=== PATIENT | female | born 1985 | race American Indian/Alaskan Native ===

== ENCOUNTER 2021-02-14 22:26 | Emergency (ER) | payer BC ==
[2021-02-14] MEDS ORDERED: SODIUM CHLORIDE 0.9% 1000 ML 1,000 ML IV ONE (23:37)
[2021-02-14] MEDS ORDERED: HYDROmorphone 1 MG/1 ML INJ IV ONE (23:37)
[2021-02-14] MEDS ORDERED: ONDANSETRON 4 MG/2 ML INJ IV ONE (23:37)
[2021-02-14 23:40] LABS: Bilirubin,Urine NEG (Negative); Blood,Urine SM (Negative); Color,Urine Yellow (Yellow); Mucus,Urine 3+ /HPF; Protein,Urine <15 mg/dL mg/dL (Negative); Urobilinogen,Urine < 2.0 mg/dL (<2.0)
--- NOTE | 2021-02-14 23:40 | Emergency Department Report ---
ED Abdominal Pain HPI - General Chief Complaint: Abdominal Pain Stated Complaint: ABDOMINAL PAIN/BACK PAIN/VOMITING PUI?: No Time Seen by Provider: 02/14/21 23:25 Source: patient Mode of arrival: Ambulatory Limitations: No Limitations - History of Present Illness Initial Comments: Patient is a 35-year-old female that is emergency room with complaints of right lower quadrant abdominal pain. Patient states the abdominal pain started 3 days ago. Patient dates the abdominal pain is radiating to her right flank. Patient states the pain is a 10 out of 10. Patient states she is also having nausea and vomiting and diarrhea. Patient denies blood in her vomitus and in her stool. Patient denies melena. Patient states she not able to hold anything down. Patient states her symptoms are worsening. Patient denies fever and chills. Patient denies recent travel. Patient denies recent international travel. Patient denies exposure to the novel coronavirus. Patient denies sick contacts. Patient denies fever and chills. Patient denies cough. Patient denies diarrhea. Patient denies coming in contact with anybody with symptoms of the novel coronavirus. Patient denies chest pain. Patient denies shortness of breath. Patient denies constipation. Patient states she is vaccinated against COVID-19. MD Complaint: abdominal pain -: Sudden Location: RLQ Radiation: R flank Severity: severe Severity scale (0 -10): 10 Quality: stabbing Consistency: constant Improves With: rest Worsens With: vomiting, movement Associated Symptoms: nausea, vomiting, diarrhea. denies: fever, chills, constipation, dysuria, hematemesis, hematochezia, melena, hematuria, syncope - Related Data LMP (females 10-50): last week Previous Rx's Medication Instructions Recorded Last Taken Type Ciprofloxacin HCl 500 mg PO Q12HR 10 Days #20 tablet 02/15/21 Unknown Rx Ondansetron [Zofran Odt] 4 mg PO Q8HR PRN #15 tab.rapdis 02/15/21 Unknown Rx metroNIDAZOLE [Flagyl] 500 mg PO Q8HR 10 Days #30 tab 02/15/21 Unknown Rx Allergies Allergy/AdvReac Type Severity Reaction Status Date / Time No Known Allergies Allergy Unverified 02/14/21 23:10 ED Review of Systems ROS: Stated complaint: ABDOMINAL PAIN/BACK PAIN/VOMITING Other details as noted in HPI Constitutional: denies: chills, fever Eyes: denies: eye pain, eye discharge, vision change ENT: denies: ear pain, throat pain Respiratory: denies: cough, shortness of breath, wheezing Cardiovascular: denies: chest pain, palpitations Endocrine: no symptoms reported Gastrointestinal: as per HPI, abdominal pain, nausea, vomiting, diarrhea. denies: constipation, hematemesis, melena, hematochezia Genitourinary: denies: urgency, dysuria, discharge Musculoskeletal: denies: back pain, joint swelling, arthralgia Skin: denies: rash, lesions Neurological: denies: headache, weakness, paresthesias Psychiatric: denies: anxiety, depression Hematological/Lymphatic: denies: easy bleeding, easy bruising ED Past Medical Hx - Past Medical History Previous Medical History?: No - Surgical History Past Surgical History?: Yes Additional Surgical History: Left forearm - Family History Family history: no significant - Social History Smoking Status: Current Every Day Smoker Substance Use Type: Marijuana - Medications Home Medications: Home Medications Medication Instructions Recorded Confirmed Last Taken Type Ciprofloxacin HCl 500 mg PO Q12HR 10 Days #20 tablet 02/15/21 Unknown Rx Ondansetron [Zofran Odt] 4 mg PO Q8HR PRN #15 tab.rapdis 02/15/21 Unknown Rx metroNIDAZOLE [Flagyl] 500 mg PO Q8HR 10 Days #30 tab 02/15/21 Unknown Rx ED Physical Exam - General Limitations: No Limitations General appearance: alert, in no apparent distress - Head Head exam: Present: atraumatic, normocephalic - Eye Eye exam: Present: normal appearance - ENT ENT exam: Present: mucous membranes moist - Neck Neck exam: Present: normal inspection - Respiratory Respiratory exam: Present: normal lung sounds bilaterally. Absent: respiratory distress - Cardiovascular Cardiovascular Exam: Present: regular rate, normal rhythm. Absent: systolic murmur, diastolic murmur, rubs, gallop - GI/Abdominal GI/Abdominal exam: Present: soft, tenderness (Right lower quadrant tenderness to palpation.), normal bowel sounds - Extremities Exam Extremities exam: Present: normal inspection - Back Exam Back exam: Present: normal inspection - Neurological Exam Neurological exam: Present: alert, oriented X3 - Psychiatric Psychiatric exam: Present: normal affect, normal mood - Skin Skin exam: Present: warm, dry, intact, normal color. Absent: rash ED Course Vital Signs 02/14/21 22:56 Temperature 98.6 F Pulse Rate 65 Respiratory 16 Rate Blood Pressure 136/62 O2 Sat by Pulse 100 Oximetry - Reevaluation(s) Reevaluation #1: Patient states her pain is much better. Patient states her nausea has resolved. I discussed all results and clinical findings with patient. I discussed plan of care with patient. Patient agrees with plan of care. Patient is stable for discharge. Patient will be discharged home. Patient given discharge instructions. Patient voiced understanding of discharge instructions. 02/15/21 02:14 ED Medical Decision Making - Lab Data Result diagrams: 02/14/21 23:47 02/14/21 23:47 - Radiology Data Radiology results: report reviewed CT abdomen pelvis w con INDICATION / CLINICAL INFORMATION: Abdominal Pain. TECHNIQUE: Axial CT images were obtained through the abdomen and pelvis after IV contrast. All CT scans at this location are performed using CT dose reduction for ALARA by means of automated exposure control. COMPARISON: None available. FINDINGS: LOWER CHEST: No significant abnormality LIVER: 2.4 cm hypodense left hepatic lesion demonstrates peripheral discontinuous nodular enhancement, compatible with hemangioma. There are several additional hyperattenuating lesions within the left and right hepatic lobes, largest in the right lobe measuring 2.6 cm and largest in the left lobe measuring 2.9 cm. These also likely reflect hemangiomas. GALLBLADDER/BILIARY TREE: No significant abnormality PANCREAS: No significant abnormality SPLEEN: No significant abnormality ADRENALS: No significant abnormality KIDNEYS / URETER: No significant abnormality URINARY BLADDER: Bladder is partially decompressed, though grossly unremarkable. REPRODUCTIVE ORGANS: Uterus is retroverted with IUD is centered in the fundal uterus. STOMACH / BOWEL: Stomach and small bowel are normal in caliber. Mild inflammatory stranding is present within the right abdomen adjacent to the ascending colon (series 2 image 113). This is associated with colonic diverticulosis. No free air or organized collection. Normal appendix. LYMPH NODES: No significant adenopathy. VASCULATURE: No significant abnormality. OTHER: No free air, free fluid, or focal fluid collection is identified. SKELETAL SYSTEM: No acute osseous findings. IMPRESSION: 1. Acute uncomplicated diverticulitis of the ascending colon. No evidence of perforation or abscess. 2. Multiple hepatic lesions, most likely reflecting benign hepatic hemangiomas. 3. Other incidental findings as above. - Medical Decision Making Patient is a 35-year-old female that presents emergency room with complaints of right lower quadrant abdominal pain. Patient also complained of nausea vomiting and diarrhea. Patient denied blood in her vomitus and her stool. Patient had labs done which were essentially unremarkable except for UTI. Patient had a CT scan of the abdomen done and it was remarkable for diverticulitis. Patient is diverticulitis uncomplicated and had no abscess or perforation noted. Patient tolerated p.o. intake after Zofran. Patient vital signs are reassuring. Patient's labs are reassuring. Patient is stable for discharge. Patient not require inpatient service. Patient not require further emergency medical service. Prior to discharge, the patient was given IV Zosyn for the diverticulitis. Patient discharged home and the patient was given Cipro, Flagyl and Zofran. I discussed all results and clinical findings with patient. I discussed plan of care with patient. Patient agrees with plan of care. Patient is stable for di scharge. Patient will be discharged home. Patient given discharge instructions. Patient voiced understanding of discharge instructions. - Differential Diagnosis Abdominal pain, UTI, kidney stone, diverticulitis, colitis, gastroenteritis Critical care attestation.: If time is entered above; I have spent that time in minutes in the direct care of this critically ill patient, excluding procedure time. ED Disposition Clinical Impression: Diverticulitis, Nausea vomiting and diarrhea Abdominal pain Qualifiers: Abdominal location: right lower quadrant Qualified Code(s): R10.31 - Right lower quadrant pain Nausea & vomiting Qualifiers: Vomiting type: unspecified Qualified Code(s): R11.2 - Nausea with vomiting, unspecified UTI (urinary tract infection) Qualifiers: Urinary tract infection type: acute cystitis Hematuria presence: with hematuria Qualified Code(s): N30.01 - Acute cystitis with hematuria Disposition: HOME / SELF CARE / HOMELESS Is pt being admited?: No Does the pt Need Aspirin: No Condition: Stable Instructions: Diarrhea, Adult, Diverticulitis, [id number], Antibiotic Medicine, Adult, [id number], Food Choices to Help Relieve Diarrhea, Adult, Urinary Tract Infection, Adult, [id number], Abdominal Pain, Adult, [id number], Nausea and Vomiting, Adult, Probiotics, Abdominal Pain (ED) Additional Instructions: Patient to follow-up with primary care in 2 to 3 days. Patient to follow-up with gastroenterology in 2 to 3 days. Patient to rest. Patient to increase wa ter. Patient to eat a brat diet. Patient to take Tylenol or ibuprofen as needed for pain. Patient to take meds as directed. Patient to return to the ER if condition worsens, changes or new symptoms arise. Prescriptions: Ciprofloxacin HCl 500 mg PO Q12HR 10 Days #20 tablet metroNIDAZOLE [Flagyl] 500 mg PO Q8HR 10 Days #30 tab Ondansetron [Zofran Odt] 4 mg PO Q8HR PRN #15 tab.rapdis PRN Reason: Nausea And Vomiting Referrals: AMRK MENSAH MD [Staff Physician] - 2-3 Days JACOB BELLA MD [Staff Physician] - 2-3 Days Time of Disposition: 02:03
[2021-02-14 23:41] LABS: HCG Qualitative,Urine Negative (Negative)
[2021-02-14 23:58] LABS: Basophils # (Auto) 0.1 K/mm3 (0.0-0.1); Basophils % (Auto) 1.1 % (0.0-1.8); Eosinophils # (Auto) 0.2 K/mm3 (0.0-0.4); Eosinophils % (Auto) 4.1 % (0.0-4.3); Hematocrit 35.9 % (30.3-42.9); Hemoglobin 11.9 gm/dl (10.1-14.3); Lymphocytes # (Auto) 2.4 K/mm3 (1.2-5.4); Lymphocytes % (Auto) 40.2 % (13.4-35.0); Mean Corpuscular HGB Conc 33 % (30-34); Mean Corpuscular Volume 100 fl (79-97); Monocytes # (Auto) 0.3 K/mm3 (0.0-0.8); Monocytes % (Auto) 5.7 % (0.0-7.3); Platelet Count 313 K/mm3 (140-440); Red Blood Count 3.61 M/mm3 (3.65-5.03); Red Cell Distribution Width 13.4 % (13.2-15.2)
[2021-02-15 00:17] LABS: Alanine Aminotransferase 13 units/L (7-56); Albumin 4.1 g/dL (3.9-5); Blood Urea Nitrogen 5 mg/dL (7-17); Calcium 9.1 mg/dL (8.4-10.2); Hemolysis Index 7
[2021-02-15 00:36] LABS: BUN/Creatinine Ratio 7; Bilirubin,Direct < 0.2 mg/dL (0-0.2)
--- NOTE | 2021-02-15 01:47 | Cat Scan Report ---
CT abdomen pelvis w con INDICATION / CLINICAL INFORMATION: Abdominal Pain. TECHNIQUE: Axial CT images were obtained through the abdomen and pelvis after IV contrast. All CT sc ans at this location are performed using CT dose reduction for ALARA by means of automated exposure c ontrol. COMPARISON: None available. FINDINGS: LOWER CHEST: No significant abnormality LIVER: 2.4 cm hypodense left hepatic lesion demonstrates peripheral discontinuous nodular enhancement , compatible with hemangioma. There are several additional hyperattenuating lesions within the left a nd right hepatic lobes, largest in the right lobe measuring 2.6 cm and largest in the left lobe measu ring 2.9 cm. These also likely reflect hemangiomas. GALLBLADDER/BILIARY TREE: No significant abnormality PANCREAS: No significant abnormality SPLEEN: No significant abnormality ADRENALS: No significant abnormality KIDNEYS / URETER: No significant abnormality URINARY BLADDER: Bladder is partially decompressed, though grossly unremarkable. REPRODUCTIVE ORGANS: Uterus is retroverted with IUD is centered in the fundal uterus. STOMACH / BOWEL: Stomach and small bowel are normal in caliber. Mild inflammatory stranding is presen t within the right abdomen adjacent to the ascending colon (series 2 image 113). This is associated w ith colonic diverticulosis. No free air or organized collection. Normal appendix. LYMPH NODES: No significant adenopathy. VASCULATURE: No significant abnormality. OTHER: No free air, free fluid, or focal fluid collection is identified. SKELETAL SYSTEM: No acute osseous findings. IMPRESSION: 1. Acute uncomplicated diverticulitis of the ascending colon. No evidence of perforation or abscess. 2. Multiple hepatic lesions, most likely reflecting benign hepatic hemangiomas. 3. Other incidental findings as above. Signer Name: Cong Hameed MD Signed: 02/15/2021 1:42 AM Workstation Name: [id number]
[2021-02-15] MEDS ORDERED: PIPERACIL/TAZOBACTA 4.5/NS 100 4.5 GM/100 ML VIAL IV ONE (02:02)
[2021-02-15 03:09] VITALS: BP 143/75
== END 2021-02-15 03:11 | disposition home or self-care (01) ==
LOC: ED 22:26
DX: K57.92 Diverticulitis of intestine, part unspecified, without perforation or abscess without bleeding (principal); R11.2 Nausea with vomiting, unspecified; R19.7 Diarrhea, unspecified; F17.200 Nicotine dependence, unspecified, uncomplicated; F12.90 Cannabis use, unspecified, uncomplicated
CPT/HCPCS: 36415; 74177; 80048; 80076; 81001; 81025; 85025; 87086; 96361; 96365; 96375; 99284; J1170; J2405; J2543; J7030; Q9967; Q0162

== ENCOUNTER 2021-09-01 19:31 | Emergency (ER) | payer SELFPAY ==
--- NOTE | 2021-09-01 21:10 | XRay Report ---
Right knee, 3 views HISTORY: Fall COMPARISON: None FINDINGS: No acute fracture or malalignment. There is no significant arthritis. Nonaggressive appeari ng area of sclerosis in the distal femur may reflect low-grade cartilaginous lesion such as an enchon droma or bone infarct. No joint effusion. No focal soft tissue abnormality. IMPRESSION: No acute findings. Signer Name: Cong Hameed MD Signed: 09/01/2021 9:06 PM Workstation Name: [id number]
--- NOTE | 2021-09-02 06:34 | Emergency Department Report ---
ED Lower Extremity HPI - General Chief Complaint: Extremity Injury, Lower Stated Complaint: FALL/RT LEG/KNEE PAIN Time Seen by Provider: 09/02/21 06:01 Source: patient Mode of arrival: Ambulatory Limitations: No Limitations - History of Present Illness Initial Comments: 28-year-old female presents emerged department complaining of right knee pain after a fall. States that she was having fine when she felt on an unknown fashion striking her knee. She woke up with bruising to the lateral aspect of her right knee with pain on palpation the calyces of the leg she is able to ambulate still for full extension and flexion of the knee. She reports no pain to her calf or ankle, no lower extremity swelling, no numbness or tingling MD Complaint: knee injury Injury: Knee: Right Type of Injury: blunt Place: home Severity: mild Improves With: nothing Worsens With: nothing Context: fall Associated Symptoms: ambulatory - Related Data Previous Rx's Medication Instructions Recorded Last Taken Type Ciprofloxacin HCl 500 mg PO Q12HR 10 Days #20 tablet 02/15/21 Unknown Rx Ondansetron [Zofran Odt] 4 mg PO Q8HR PRN #15 tab.rapdis 02/15/21 Unknown Rx metroNIDAZOLE [Flagyl] 500 mg PO Q8HR 10 Days #30 tab 02/15/21 Unknown Rx Ketorolac [Toradol] 10 mg PO Q6H PRN #14 09/02/21 Unknown Rx Allergies Allergy/AdvReac Type Severity Reaction Status Date / Time No Known Allergies Allergy Unverified 02/14/21 23:10 ED Review of Systems ROS: Stated complaint: FALL/RT LEG/KNEE PAIN Other details as noted in HPI Comment: All other systems reviewed and negative ED Past Medical Hx - Surgical History Additional Surgical History: Left forearm - Social History Smoking Status: Current Every Day Smoker Substance Use Type: Marijuana - Medications Home Medications: Home Medications Medication Instructions Recorded Confirmed Last Taken Type Ciprofloxacin HCl 500 mg PO Q12HR 10 Days #20 tablet 02/15/21 Unknown Rx Ondansetron [Zofran Odt] 4 mg PO Q8HR PRN #15 tab.rapdis 02/15/21 Unknown Rx metroNIDAZOLE [Flagyl] 500 mg PO Q8HR 10 Days #30 tab 02/15/21 Unknown Rx Ketorolac [Toradol] 10 mg PO Q6H PRN #14 06/21/22 Unknown Rx ED Physical Exam - General Limitations: No Limitations General appearance: alert, in no apparent distress - Head Head exam: Present: atraumatic, normocephalic - Eye Eye exam: Present: normal appearance - ENT ENT exam: Present: mucous membranes moist - Neck Neck exam: Present: normal inspection - Respiratory Respiratory exam: Present: normal lung sounds bilaterally. Absent: respiratory distress - Cardiovascular Cardiovascular Exam: Present: regular rate, normal rhythm. Absent: systolic murmur, diastolic murmur, rubs, gallop - GI/Abdominal GI/Abdominal exam: Present: soft, normal bowel sounds - Extremities Exam Extremities exam: Present: normal inspection, tenderness (Lateral aspect of the knee with some bruising in the healing stages. Normal varus and valgus. Drawer test is negative. No tenderness with Madhu's. Normal patella. No lower extremity edema no calf tenderness. No popliteal mass appreciated) - Back Exam Back exam: Present: normal inspection - Neurological Exam Neurological exam: Present: alert, oriented X3 - Psychiatric Psychiatric exam: Present: normal affect, normal mood - Skin Skin exam: Present: warm, dry, intact, normal color. Absent: rash ED Course Vital Signs 09/01/21 20:02 Temperature 98.2 F Pulse Rate 63 Respiratory 18 Rate Blood Pressure 112/53 O2 Sat by Pulse 100 Oximetry Critical care attestation.: If time is entered above; I have spent that time in minutes in the direct care of this critically ill patient, excluding procedure time. ED Disposition Clinical Impression: Contusion of right knee Disposition: 01 HOME / SELF CARE / HOMELESS Is pt being admited?: No Does the pt Need Aspirin: No Condition: Stable Instructions: Periosteal Hematoma, Contusion, How to Use Cold Therapy Prescriptions: Ketorolac [Toradol] 10 mg PO Q6H PRN #14 PRN Reason: Pain Referrals: SHAINA DE LA GARZA MD [Staff Physician] - 3-5 Days
[2021-09-02 07:29] VITALS: BP 134/86
== END 2021-09-02 07:15 | disposition home or self-care (01) ==
LOC: ED 19:31
DX: S80.01XA Contusion of right knee, initial encounter (principal); F17.200 Nicotine dependence, unspecified, uncomplicated; F12.90 Cannabis use, unspecified, uncomplicated; Z79.899 Other long term (current) drug therapy; W18.39XA Other fall on same level, initial encounter; Y93.89 Activity, other specified; Y92.89 Other specified places as the place of occurrence of the external cause; Y99.8 Other external cause status
CPT/HCPCS: 99283